=== PATIENT | female | born 1985 | race African-American/Black ===

== ENCOUNTER 2018-01-01 11:29 | Emergency (ER) | payer OTHER ==
[~2018-01-01] VITALS: Ht 157.5 cm; Wt 119.8 kg
[~2018-01-01 11:29] MED LIST: APAP500 PO; CIPRO PO; COLACE 100 MG100 MG PO; FLAGYL500 MG PO; IBUPROFEN 800800 M1 PO; LORTAB PO; NEXIUM40 MG PO; NOHOMEMEDICATIONS; PRENATAL; PROCARDIA XL30 MG PO
[2018-01-01] MEDS ORDERED: BUTALB-APAP-CA1 EACH PO (12:28)
[2018-01-01] MEDS ORDERED: HYDROCHLOROTH12.5 M1 PO (12:30)
== END 2018-01-01 11:30 | disposition home or self-care (01) ==
LOC: ER 11:29
DX: I10 Essential (primary) hypertension (principal); G44.209 Tension-type headache, unspecified, not intractable; J45.909 Unspecified asthma, uncomplicated; K21.9 Gastro-esophageal reflux disease without esophagitis

== ENCOUNTER 2019-09-27 21:49 | Emergency (ER) | payer OTHER ==
[~2019-09-27] VITALS: Ht 157.5 cm; Wt 118.4 kg
[~2019-09-27 21:49] MED LIST changes: +BUTALB-APAP-CA1 EACH PO; +HYDROCHLOROTH12.5 M1 PO
[2019-09-27] MEDS ORDERED: AUGMENTIN 875-1 EACH PO (23:20)
[2019-09-27 23:53] VITALS: BP 165/100
== END 2019-09-27 23:58 | disposition home or self-care (01) ==
LOC: ER 21:49
DX: S81.812A Laceration without foreign body, left lower leg, initial encounter (principal); M25.571 Pain in right ankle and joints of right foot; J45.909 Unspecified asthma, uncomplicated; I10 Essential (primary) hypertension; K21.9 Gastro-esophageal reflux disease without esophagitis; Z79.899 Other long term (current) drug therapy; Z98.890 Other specified postprocedural states; W54.0XXA Bitten by dog, initial encounter; Y93.01 Activity, walking, marching and hiking; Y92.89 Other specified places as the place of occurrence of the external cause; Y99.9 Unspecified external cause status

== ENCOUNTER 2019-10-08 10:15 | Emergency (ER) | payer OTHER ==
[~2019-10-08] VITALS: Ht 157.5 cm; Wt 122.5 kg
[~2019-10-08 10:15] MED LIST changes: +AUGMENTIN 875-1 EACH PO
[2019-10-08] MEDS ORDERED: MOBIC15 MG PO (12:08)
[2019-10-08 12:37] VITALS: BP 177/120
== END 2019-10-08 12:38 | disposition home or self-care (01) ==
LOC: ER 10:15
DX: S83.92XA Sprain of unspecified site of left knee, initial encounter (principal); S93.401A Sprain of unspecified ligament of right ankle, initial encounter; J45.909 Unspecified asthma, uncomplicated; I10 Essential (primary) hypertension; K21.9 Gastro-esophageal reflux disease without esophagitis; Z79.899 Other long term (current) drug therapy; Z98.890 Other specified postprocedural states; W18.30XA Fall on same level, unspecified, initial encounter; Y93.89 Activity, other specified; Y92.89 Other specified places as the place of occurrence of the external cause; Y99.9 Unspecified external cause status

== ENCOUNTER 2019-10-15 11:27 | Emergency (ER) | payer OTHER ==
[~2019-10-15] VITALS: Ht 157.5 cm; Wt 117.9 kg
[~2019-10-15 11:27] MED LIST changes: +MOBIC15 MG PO
[2019-10-15 11:28] VITALS: BP 147/107
== END 2019-10-15 12:09 | disposition home or self-care (01) ==
LOC: ER 11:27
DX: Z48.02 Encounter for removal of sutures (principal); I10 Essential (primary) hypertension; J45.909 Unspecified asthma, uncomplicated; K21.9 Gastro-esophageal reflux disease without esophagitis; Z90.49 Acquired absence of other specified parts of digestive tract